=== PATIENT | female | born 1995 ===

== ENCOUNTER 2021-03-08 13:32 | Emergency (ER) | payer SELFPAY ==
[2021-03-08 14:24] VITALS: BP 112/70
--- NOTE | 2021-03-08 15:19 | Emergency Department Report ---
Chief Complaint: Abdominal Pain Stated Complaint: VAG PAINS - HPI History of Present Illness: 26-year-old -[place] female presents to the emergency room for acute on chronic pelvic pain. Patient denies any vaginal discharge no vaginal bleeding no dysuria. Denies any fever chills no nausea no vomiting no abdominal pain. Patient states that she has a history of PCOS. Patient states her last menstrual period was 02/27/2021. Patient has taken nothing for her pain. States that she does not take medications. Patient states she has had this in the past and just wanted to get checked out since she is planning to become soon. She does report an allergy to Metformin. Currently takes no medications on a daily basis. - Exam Vital Signs: Vital Signs 03/08/21 03/08/21 14:22 14:23 Temperature 98.3 F 98.2 F Pulse Rate 81 64 Respiratory 18 Rate Blood Pressure 112/70 [Right] O2 Sat by Pulse 100 100 Oximetry Physical Exam: General: Awake, appropriately interactive, no acute distress. Neck: Supple. Full range of motion intact. Cardiovascular: Normal peripheral perfusion. Pulmonary: No respiratory distress. Patient is speaking normally without use of accessory muscles. Skin: No apparent rashes or lesions. Abdomen: Nontender. Neurological: No facial asymmetry. Speech is clear. Follows commands. Patient is alert and oriented. Musculoskeletal: Full range of motion, no crepitus. No tenderness to palpate nonerythematous no edema test appreciated. Able to bear weight and ambulate without difficulty. Distal neurovascular and motor/sensory function is intact. Psych: Cooperative. Appropriate mood and affect. MSE screening note: Focused history and physical exam performed. Due to findings the following was ordered: 26-year-old -[place] female presents to the emergency room for acute on chronic pelvic pain. Patient denies any vaginal discharge no vaginal bleeding no dysuria. Denies any fever chills no nausea no vomiting no abdominal pain. Patient states that she has a history of PCOS. Patient states her last menstrual period was 02/27/2021. Patient has taken nothing for her pain. States that she does not take medications. Patient states she has had this in the past and just wanted to get checked out since she is planning to become soon. She does report an allergy to Metformin. Currently takes no medications on a daily basis. Referral to RADIOLOGY NURSE. Discussed with patient that ibuprofen will help with the inflammation of her ovaries. ED Disposition for MSE Disposition: Z- MED SCREENING EXAM-LEFT Is pt being admited?: No Does the pt Need Aspirin: No Condition: Stable Instructions: Abdominal Pain (ED) Additional Instructions: Referral to RADIOLOGY NURSE. Recommend ibuprofen or Tylenol for pain management. Referrals: [facility] [Provider Group] - 3-5 Days Forms: Work/School Release Form(ED)
[2021-03-08 15:55] LABS: Bilirubin,Urine NEG (Negative); Blood,Urine SM (Negative); Color,Urine Yellow (Yellow); Mucus,Urine FEW /HPF; Protein,Urine <15 mg/dL mg/dL (Negative); Urobilinogen,Urine < 2.0 mg/dL (<2.0)
== END 2021-03-08 17:30 | disposition left against medical advice (07) ==
LOC: ED 13:32
DX: R10.2 Pelvic and perineal pain (principal); Z53.21 Procedure and treatment not carried out due to patient leaving prior to being seen by health care provider
CPT/HCPCS: 81001